=== PATIENT | male | born 1945 | race Caucasian/White ===

== ENCOUNTER 2017-11-14 22:34 | Inpatient (IN) | payer MEDICARE, BC ==
[~2017-11-14] VITALS: Ht 175.3 cm; Wt 75.3 kg
[~2017-11-14 22:34] MED LIST: BUSP10TA3 PO; BUSP10TA35 PO; CARB-93 PO; CARB1TAB40 PO; DIVA-78 PO; DIVA250T47 PO; DONE5TAB7 PO; ENTA200T PO; FERR325T24 PO; FINA5TAB4 PO; FLUD0.1T3 PO; HYDR-552 PO; SERT50TA PO; ZOLP5TAB8 PO
--- NOTE | 2017-11-14 22:34 | NUR ---
PT BBRA FROM [facility] FOR SLIP AND FALL WHILE IN THE SHOWER. PT STATES HE HIT HIS HEAD, -KO, -N/V/D, -DIZZINESS, -BLURRED VISSION, NO PAIN. PT'S PUPIL PERRLA. PT IS AAOX2, PT BELIEVES IT IS THE YEAR OF 2015 AND HE BELIEVES HE IS AT [facility]. VSS. NO S.S OF ACUTE DISTRESS NOTED. RESP EVEN AND UNLABORED. PT SAFETY AND COMFORT MEASURES IN PLACE;. PT PLACED ON MONITOR AND POX. AWAITING MD FOR EVAL.
--- NOTE | 2017-11-14 22:45 | NUR ---
PT UNABLE TO URINATE. PT REFUSED CABEZAS CATHETER. WILL CONTINUE TO MONITOT PT.
[2017-11-14 23:14] LABS: BASOPHILS % (AUTO) 0.2 % (0.0-2.0); EOSINOPHILS % (AUTO) 0.8 % (0.0-6.0); HEMATOCRIT 33 % (39-51); HEMOGLOBIN 11.2 g/dL (13.5-17.5); LYMPHOCYTES # (AUTO) 0.6 /CMM (0.8-4.8); MEAN CORPUSCULAR HGB CONC 34 g/dl (31.0-36.0); MEAN CORPUSCULAR VOLUME 98 fL (80-96); MONOCYTES # (AUTO) 0.7 /CMM (0.1-1.30); MONOCYTES % (AUTO) 9.2 % (2.0-12.0); NEUTROPHILS # (AUTO) 5.7 /CMM (1.8-8.9); NEUTROPHILS % (AUTO) 81.8 % (43.0-81.0); PLATELET COUNT (AUTO) 130 /CMM (150-450); RDW COEFFICIENT OF VARIATION 12.9 (11.5-15.0); RED BLOOD CELL COUNT(AUTO) 3.32 MIL/uL (4.5-6.0); WHITE BLOOD COUNT (AUTO) 7.1 K/uL (4.3-11.0)
--- NOTE | 2017-11-14 23:25 | NUR ---
PT TO CT
[2017-11-14 23:26] LABS: INR 1.19 (0.87-1.13)
[2017-11-14 23:28] LABS: CALCIUM, SERUM 8.5 mg/dL (8.5-10.1); CARBON DIOXIDE 26 mmol/L (21-32); CHLORIDE 110 mmol/L (98-107); CREATININE 1.5 mg/dL (0.6-1.3); GLUCOSE 136 mg/dL (74-106); POTASSIUM 3.9 mmol/L (3.5-5.1); SODIUM SERUM 144 mmol/L (136-145); UREA NITROGEN, BLOOD 40 mg/dL (7-18)
[2017-11-14 23:34] LABS: TROPONIN I 0.023 ng/mL (0.00-0.056)
[2017-11-14 23:35] LABS: ALANINE AMINOTRANSFERASE 18 U/L (12-78); ALBUMIN 2.8 g/dL (3.4-5.0); ALCOHOL, BLOOD < 3 mg/dL (0-0); ALKALINE PHOSPHATASE 68 U/L (46-116); ASPARTATE AMINOTRANSFERASE 150 U/L (15-37); BILIRUBIN,DIRECT 0.3 mg/dL (0.0-0.2); BILIRUBIN,TOTAL 1.1 mg/dL (0.2-1.0); SALICYLATE 4.8 mg/dL (2.8-20.0); TOTAL PROTEIN, SERUM 5.5 g/dL (6.4-8.2)
[2017-11-14 23:40] LABS: THYROID STIMULATING HORMONE 1.417 uIU/mL (0.358-3.74)
--- NOTE | 2017-11-14 23:42 | NUR ---
PT BACK FROM CT
--- NOTE | 2017-11-14 23:42 | NUR ---
PT UNABLE TO URINATE. URINAL GIVEN TO PT. PT STATES HE WILL "TRY TO GIVE SOME URINE". WILL CONTINUE TO MONITOR PT. VSS.
[2017-11-15] MEDS ORDERED: IV NS 0.9% 1,000 ML BAG IV ONE
--- NOTE | 2017-11-15 00:53 | NUR ---
Patient is resting comfortably in bed with eyes closed. Easily aroused. VSS
[2017-11-15 01:11] LABS: SERUM AMMONIA 12 umol/L (11-32)
--- NOTE | 2017-11-15 01:18 | NUR ---
DR. RODRIGUEZ IS SPEAKING TO DR. COLEEN GOMEZ WHO IS THE ON-CALL FOR PT'S PMD DR. CELESTE.
--- NOTE | 2017-11-15 01:36 | NUR ---
PAGED DORA MORELAND FOR PANEL CALL.
--- NOTE | 2017-11-15 01:37 | NUR ---
PT IS ASSIGNED TO [facility] RM#: [id number].
--- NOTE | 2017-11-15 01:43 | NUR ---
REPORT GIVEN TO JOHN WOODS FOR PAIGE.
[2017-11-15] MEDS ORDERED: MAGNESIUM HYDROXIDE 30 ML UDC PO PRN (03:00)
[2017-11-15] MEDS ORDERED: ZOLPIDEM TARTRATE 5 MG TABLET PO PRN (03:00)
[2017-11-15] MEDS ORDERED: MAG HYDROX/AL HYDROX/SIMETH 30 ML UDC PO PRN (03:00)
[2017-11-15] MEDS ORDERED: ONDANSETRON HCL/PF 4 MG/2 ML VIAL IVP PRN (03:00)
[2017-11-15] MEDS ORDERED: ACETAMINOPHEN 325 MG TABLET PO PRN (03:00)
[2017-11-15] MEDS ORDERED: Z GUARD REMEDY 2 OZ OINT TP PRN (03:00)
[2017-11-15 04:00] VITALS: BP 111/63
[2017-11-15] MEDS: IV NS 0.9% 1,000 ML IV PRN ×2 (06:07→22:51)
--- NOTE | 2017-11-15 07:30 | NUR ---
PT RECEIVED RESTING COMFORTABLY IN BED. NO S/S OR C/O PAIN OR DISTRESS NOTED. SIDE RAILS UP X2, CALL LIGHT LEFT WITHIN REACH. WILL CONTINUE PLAN OF CARE.
[2017-11-15 08:00] VITALS: BP 130/69
[2017-11-15] MEDS: PANTOPRAZOLE 40 MG VIAL IV SCH (08:14)
--- NOTE | 2017-11-15 08:29 | NUR ---
WOUND CARE CONSULT: PT PRESENTS WITH ABRASIONS TO RT CHEEK AND RT KNEE WITH SOME SCRATCHES TO RT ABDOMINAL AREA, PRESENT ON ADMISSION. RECOMMENDATIONS MADE FOR SKIN PROTECTION AND WOUND CARE. DISCUSSED WITH NURSING STAFF. PT INCONTINENT AT THIS TIME. CURRENT JERROD SCORE IS 14. MD IN AGREEMENT WITH PLAN OF CARE. WILL SEE PRN. Addendum: 11/15/17 at 0831 by MODESTO MCKEON WNDNU Amended: Links added.
[2017-11-15] MEDS: ENOXAPARIN SODIUM 40 MG/0.4 ML DISP.SYRIN SQ SCH (08:36)
[2017-11-15] MEDS: BACITRACIN/POLYMYXIN B 15 GM TUBE TP SCH (09:00)
[2017-11-15 12:00] VITALS: BP 126/64
[2017-11-15] MEDS ORDERED: HYDROCODONE/APAP 5/325MG 1 EACH TABLET PO PRN (12:30)
[2017-11-15] MEDS: ENTACAPONE 200 MG TABLET PO SCH ×3 (14:03→21:47)
[2017-11-15] MEDS: CARBIDOPA/LEVODOPA 25/100 MG 1 UDTAB PO SCH ×3 (14:03→21:47)
[2017-11-15 16:00] VITALS: BP 133/68
[2017-11-15] MEDS: DIVALPROEX SODIUM 500 MG TABLET.DR PO SCH (17:05)
[2017-11-15 17:34] LABS: CREATININE, URINE 90.6 MG/DL (30.0-125.0)
[2017-11-15 17:58] LABS: APPEARANCE,URINE SL CLOUDY (CLEAR); BILIRUBIN,URINE NEGATIVE (NEGATIVE); BLOOD, URINE NEGATIVE Ery/uL (NEGATIVE); COLOR,URINE YELLOW (YELLOW); KETONES,URINE NEGATIVE (NEGATIVE); LEUKOCYTE ESTERASE ,URINE NEGATIVE (NEGATIVE); NITRITE, URINE NEGATIVE (NEGATIVE); PROTEIN,URINE NEGATIVE (NEGATIVE); UGLUCOSE NEGATIVE (NEGATIVE); UROBILINOGEN,URINE 0.2 EU/dL (0.2)
[2017-11-15 20:00] VITALS: BP 141/69
--- NOTE | 2017-11-15 20:15 | NUR ---
ANTONIA RN NOTES RECEIVED BEDSIDE REPORT FROM AM NURSE. PT IS A/O X2-3, ON RA SPO2 95% WITH NON LABORED BREATHING.NO COMPLAIN OF PAIN OR ANY DISCOMFORT AT THIS TIME . RAC 18G IV LINE IS INTACT, PATIENT @ 0.9% NS @ 75ML/HR. PT IS AMBULATORY AND ASKED TO USE RESTROOM. ALL SAFETY MEASURES ARE IMPLEMENTED, BED IN LOW, LOCKED POSITION, CALL LIGHT WITHIN REACH. WILL CONTINUE TO MONITOR.
[2017-11-15] MEDS: busPIRone 5 MG TABLET PO SCH (21:47)
[2017-11-16] VITALS (7 sets, daily range): BP systolic 125–180; BP diastolic 59–91
[2017-11-16 06:23] LABS: APPEARANCE,URINE CLEAR (CLEAR); BILIRUBIN,URINE NEGATIVE (NEGATIVE); BLOOD, URINE NEGATIVE Ery/uL (NEGATIVE); COLOR,URINE YELLOW (YELLOW); KETONES,URINE NEGATIVE (NEGATIVE); LEUKOCYTE ESTERASE ,URINE NEGATIVE (NEGATIVE); NITRITE, URINE NEGATIVE (NEGATIVE); PROTEIN,URINE NEGATIVE (NEGATIVE); UGLUCOSE NEGATIVE (NEGATIVE); UROBILINOGEN,URINE 0.2 EU/dL (0.2)
[2017-11-16 06:36] LABS: BASOPHILS % (AUTO) 0.9 % (0.0-2.0); EOSINOPHILS % (AUTO) 2.9 % (0.0-6.0); HEMATOCRIT 33 % (39-51); HEMOGLOBIN 11.4 g/dL (13.5-17.5); LYMPHOCYTES # (AUTO) 1.1 /CMM (0.8-4.8); LYMPHOCYTES % (AUTO) 21.9 % (20.0-44.0); MEAN CORPUSCULAR HGB CONC 35 g/dl (31.0-36.0); MEAN CORPUSCULAR VOLUME 98 fL (80-96); MONOCYTES # (AUTO) 0.4 /CMM (0.1-1.30); MONOCYTES % (AUTO) 9.1 % (2.0-12.0); NEUTROPHILS # (AUTO) 3.2 /CMM (1.8-8.9); NEUTROPHILS % (AUTO) 65.2 % (43.0-81.0); PLATELET COUNT (AUTO) 128 /CMM (150-450); RDW COEFFICIENT OF VARIATION 13.7 (11.5-15.0); RED BLOOD CELL COUNT(AUTO) 3.39 MIL/uL (4.5-6.0); WHITE BLOOD COUNT (AUTO) 4.9 K/uL (4.3-11.0)
[2017-11-16 06:48] LABS: CALCIUM, SERUM 8.5 mg/dL (8.5-10.1); CREATININE 0.9 mg/dL (0.6-1.3); PHOSPHORUS 2.5 mg/dL (2.5-4.9); POTASSIUM 3.4 mmol/L (3.5-5.1)
[2017-11-16 07:03] LABS: MAGNESIUM 1.3 mg/dL (1.8-2.4)
[2017-11-16 07:16] LABS: THYROID STIMULATING HORMONE 1.062 uIU/mL (0.358-3.74)
--- NOTE | 2017-11-16 08:00 | NUR ---
HAND SPRING FORMER NOTE PATIENT IN BED ALERT WITH CONFUSION, BED ALARM PLACED FOR PATIENT SAFETY , BED IN LOWEST AND LOCKED POSITION , ON RA NO SOB NOTED , RT AC HL INTACT ,ON IVF ORDERED, WILL CONT TO MONITOR CLOSELY
[2017-11-16] MEDS: SERTRALINE HCL 50 MG TABLET PO SCH (08:54)
[2017-11-16] MEDS: DIVALPROEX SODIUM 500 MG TABLET.DR PO SCH ×2 (08:54→16:24)
[2017-11-16] MEDS: FINASTERIDE (5 MG) 5 MG TABLET PO SCH (08:54)
[2017-11-16] MEDS: CARBIDOPA/LEVODOPA 25/100 MG 1 UDTAB PO SCH ×4 (08:54→20:20)
[2017-11-16] MEDS: PANTOPRAZOLE 40 MG VIAL IV SCH (08:54)
[2017-11-16] MEDS: DONEPEZIL 5 MG TABLET PO SCH (08:54)
[2017-11-16] MEDS: FERROUS SULFATE (325 MG) 325 MG/TAB TABLET PO SCH (08:55)
[2017-11-16] MEDS: FLUDROCORTISONE 0.1 MG TABLET PO SCH (08:55)
[2017-11-16] MEDS: ENTACAPONE 200 MG TABLET PO SCH ×4 (08:55→20:19)
[2017-11-16] MEDS: ENOXAPARIN SODIUM 40 MG/0.4 ML DISP.SYRIN SQ SCH (08:56)
[2017-11-16] MEDS: Magnesium 1GM/D5W 100ML PREMIX 100 ML IV SCH ×4 (10:01→14:44)
[2017-11-16] MEDS: BACITRACIN/POLYMYXIN B 15 GM TUBE TP SCH (10:01)
[2017-11-16] MEDS ORDERED: POTASSIUM CHLORIDE 20 MEQ POWDER PACKET PO SCH (10:30)
--- NOTE | 2017-11-16 11:00 | NUR ---
PROPOSAL LEAD WRITER NOTE SEEN BY BRIANNA COMBS WILL CONT CARE ORDERED MAG 1.3 ,WILL INFUSE MAG ORDERED
[2017-11-16 11:54] LABS: ALBUMIN 2.6 g/dL (3.4-5.0); BILIRUBIN,DIRECT 0.2 mg/dL (0.0-0.2); BILIRUBIN,TOTAL 0.8 mg/dL (0.2-1.0); TOTAL PROTEIN, SERUM 5.5 g/dL (6.4-8.2)
--- NOTE | 2017-11-16 15:00 | NUR ---
CLIENT CARE MANAGER NOTE ALL NEEDS ATTENDED , ASSISTED TO BR, KEEP CLEAN DRY
--- NOTE | 2017-11-16 18:18 | NUR ---
TELE RNNNOTE HAVING DINNER , KYUNG TO EAT SELF WITH ASSISTANCE, NOT IN ACUTE DISTRESS
--- NOTE | 2017-11-16 20:08 | NUR ---
RN NOTES ALERT AND RESPONSIVE WITH CONFUSION. ABLE TO VERBALIZE NEEDS. AMBULATORY WITH ASSIST. NO RESPIRATORY DISTRESS OR SHORTNESS OF BREATH. BREATHING EVEN AND UNLABORED. NO COMPLAINT OF PAIN OR DISCOMFORT. WILL CONTINUE TO MONITOR. KEPT CLEAN AND DRY.
[2017-11-16] MEDS: IV NS 0.9% 1,000 ML IV PRN (20:11)
[2017-11-16] MEDS: busPIRone 5 MG TABLET PO SCH (23:09)
[2017-11-17] VITALS: BP_SYST 168; BP_SYST 198; BP_DIAS 102; BP_DIAS 84
[2017-11-17 04:00] VITALS: BP 151/79
[2017-11-17 06:40] LABS: CALCIUM, SERUM 8.1 mg/dL (8.5-10.1); CREATININE 0.8 mg/dL (0.6-1.3); MAGNESIUM 1.6 mg/dL (1.8-2.4); POTASSIUM 3.6 mmol/L (3.5-5.1)
--- NOTE | 2017-11-17 07:23 | NUR ---
RN NOTES PATIENT WITH EPISODES OF GETTING OUT BED, ALERT AND RESPONSIVE. CONFUSED. NO COMPLAINT OF PAIN OR DISCOMFORT. NO RESPIRATORY DISTRESS OR SHORTNESS OF BREATH. BREATHING EVEN AND UNLABORED. VITAL SIGNS WNL. WILL ENDORSE TO AM SHIFT FOR CONTINUITY OF CARE.
[2017-11-17 08:00] VITALS: BP 137/86
[2017-11-17] MEDS: PANTOPRAZOLE 40 MG VIAL IV SCH ×2 (09:00→09:34)
--- NOTE | 2017-11-17 09:00 | NUR ---
ADIS NOTE PT DID NOT GET MORNING PROTONIX IV, S Addendum: 11/17/17 at 1112 by DEYANIRA NELSON RN DUE TO IV INFILTRATED AND PT REFUSED NEW IV INSERTION, WILL NOTIFY .
[2017-11-17] MEDS: FLUDROCORTISONE 0.1 MG TABLET PO SCH (09:34)
[2017-11-17] MEDS: DIVALPROEX SODIUM 500 MG TABLET.DR PO SCH (09:34)
[2017-11-17] MEDS: DONEPEZIL 5 MG TABLET PO SCH (09:34)
[2017-11-17] MEDS: ENTACAPONE 200 MG TABLET PO SCH ×2 (09:34→13:21)
[2017-11-17] MEDS: FINASTERIDE (5 MG) 5 MG TABLET PO SCH (09:34)
[2017-11-17] MEDS: SERTRALINE HCL 50 MG TABLET PO SCH (09:34)
[2017-11-17] MEDS: CARBIDOPA/LEVODOPA 25/100 MG 1 UDTAB PO SCH ×2 (09:34→13:21)
[2017-11-17] MEDS: BACITRACIN/POLYMYXIN B 15 GM TUBE TP SCH (09:35)
[2017-11-17] MEDS: ENOXAPARIN SODIUM 40 MG/0.4 ML DISP.SYRIN SQ SCH (09:35)
[2017-11-17] MEDS: FERROUS SULFATE (325 MG) 325 MG/TAB TABLET PO SCH (09:41)
[2017-11-17] MEDS ORDERED: Magnesium 1GM/D5W 100ML PREMIX 100 ML IV SCH (11:00)
[2017-11-17 12:00] VITALS: BP 134/70
[2017-11-17] MEDS ORDERED: MAGNESIUM OXIDE 400 MG TABLET PO ONE (12:00)
[2017-11-17] MEDS ORDERED: BACI28.33 TP (12:37)
[2017-11-17 16:00] VITALS: BP 155/82
--- NOTE | 2017-11-17 16:33 | NUR ---
RN NOTE PT DISCHARGED TO ASSISTED LIVING ([facility]/R) WITH VIA PRIVATE TRANSPORTATION IN STABLE CONDITION, IV ACCESS REMOVED, ID BAND REMOVED, PT BELONGINGS LIST SIGNED, BELONGINGS PROVIDED TO PT AND , DISCHARGE INSTRUCTIONS GIVEN TO PT'S , EXIT CARE DONE, TEACHING DONE TO PT AND , VERBALIZED UNDERSTANDING.
== END 2017-11-17 16:24 | DRG 682 ==
LOC: ER 22:35 → TELE-TD 11-15 01:54 → TELE1 11-15 08:40
PROVIDERS: ADMIT Hospitalist; ATTEND Nurse Practitioner Acute Care
DX: N17.0 Acute kidney failure with tubular necrosis (principal); G93.41 Metabolic encephalopathy; E11.22 Type 2 diabetes mellitus with diabetic chronic kidney disease; E87.8 Other disorders of electrolyte and fluid balance, not elsewhere classified; E87.5 Hyperkalemia; G20 Parkinson's disease; S80.01XA Contusion of right knee, initial encounter; D53.9 Nutritional anemia, unspecified; I12.0 Hypertensive chronic kidney disease with stage 5 chronic kidney disease or end stage renal disease; N18.6 End stage renal disease; E78.5 Hyperlipidemia, unspecified; F02.80 Dementia in other diseases classified elsewhere, unspecified severity, without behavioral disturbance, psychotic disturbance, mood disturbance, and anxiety; W07.XXXA Fall from chair, initial encounter; Z96.659 Presence of unspecified artificial knee joint; E86.0 Dehydration; S00.81XA Abrasion of other part of head, initial encounter; Y92.009 Unspecified place in unspecified non-institutional (private) residence as the place of occurrence of the external cause; Z88.5 Allergy status to narcotic agent; Z79.899 Other long term (current) drug therapy; Z96.641 Presence of right artificial hip joint; Z83.3 Family history of diabetes mellitus; Z99.2 Dependence on renal dialysis; S30.811A Abrasion of abdominal wall, initial encounter; N40.0 Benign prostatic hyperplasia without lower urinary tract symptoms; I25.10 Atherosclerotic heart disease of native coronary artery without angina pectoris; K21.9 Gastro-esophageal reflux disease without esophagitis; Y92.091 Bathroom in other non-institutional residence as the place of occurrence of the external cause; R74.0 Nonspecific elevation of levels of transaminase and lactic acid dehydrogenase [LDH]
CPT/HCPCS: 36415; 70450-TC; 70551-TC; 71045-TC; 72125-TC; 73552; 76770-TC; 80048-TC; 80061-TC; 80076-TC; 81000-TC; 82140-TC; 82570-TC; 82962-TC; 83540-TC; 83605-TC; 83735-TC; 83880; 84100-TC; 84300-TC; 84443-TC; 84484-TC; 85025-TC; 85730-TC; 86850-TC; 87081-TC; 87086-TC; 92611-TC; 93307-TC; A4349; A4606; A6402; C9113; G0480; J1650; J3475; J7030; Z7610